=== PATIENT | female | born 1985 | race Caucasian/White ===

== ENCOUNTER 2019-09-07 08:22 | Day surgery (SDC) | payer BC ==
[2019-09-06 13:45] VITALS: BMI 21.6
[2019-09-07 08:36] LABS: Prothrombin Time 13.3 sec (12.0-14.7)
[2019-09-07 08:37] LABS: PTT 36.2 sec (22.9-36.1)
[2019-09-07] MEDS ORDERED: Sodium Bicarbonate 2.5 MEQ/5 ML VIAL IV ONE (08:37)
[2019-09-07 09:19] VITALS: BP 112/74; TEMP 98.3
--- NOTE | 2019-09-07 11:54 | CT ---
CT-guided bone marrow biopsy HISTORY: Lytic disorder. FINDINGS: After explaining the procedure and answering all questions, limited CT imaging of the pelvi s were performed with patient prone. Sterile technique, buffered local anesthesia, CT guidance, and a posterior approach were used to care fully advance an 11-gauge bone biopsy needle to the posterior cortex of the left iliac body. Position confirmed with CT. Needle was carefully engaged into the bone and blood aspirated. A 11-gaug e core specimen obtained without difficulty. Submitted to pathology personnel for processing. Needle was removed. No evidence of complication. Patient tolerated the procedure well and was eventua lly dismissed in good condition. IMPRESSION : Technically successful CT-guided bone marrow aspiration/biopsy. Pathology is pending
== END 2019-09-07 11:11 | disposition home or self-care (01) ==
LOC: CT 08:22
PROVIDERS: ATTEND Internal Medicine Hematology & Oncology
PROC: 07DR3ZX Extraction of Iliac Bone Marrow, Percutaneous Approach, Diagnostic (ICD-10-PCS; principal; 2019-09-07)
DX: D75.9 Disease of blood and blood-forming organs, unspecified (principal); F32.9 Major depressive disorder, single episode, unspecified; Z88.0 Allergy status to penicillin; Z88.5 Allergy status to narcotic agent
CPT/HCPCS: 20225; 36415; 77012; 85097; 85610; 85730; 88184; 88237; 88305; 88311; 88313; 88341; 88342